=== PATIENT | male | born 1950 | race Caucasian/White ===

== ENCOUNTER 2018-09-21 05:40 | Inpatient (IN) ==
[2018-09-06 10:27] LABS: Basophils % 0.5 % (0.0-0.8); Eosinophils # 0.1 10*3/uL (0.0-0.87); Eosinophils % 1.4 % (0.00-10.9); Hematocrit 47.4 VOL% (42.0-52.0); Hemoglobin 15.8 GM/DL (14.0-18.0); Immature Granulocytes % 0.6 %; Immature Granulocytes Absolute 0.05 #; Lymphocytes # 1.7 10*3/uL (1.4-4.0); Lymphocytes % 21.1 % (21.2-54.2); Mean Corpuscular HGB Conc 33.3 GM/DL (32-36); Mean Corpuscular Hemoglobin 32 PG (27-34); Mean Platelet Volume 9.3 FL (9.6-12.0); Monocytes % 12.7 % (1.7-12.7); Neutrophils # 5.2 10*3/uL (1.4-7.4); Neutrophils % 63.7 % (38.7-73.9); Platelet Count 230 T/CUMM (130-400); Red Blood Count 4.94 MC/CUMM (3.8-5.5); Red Cell Distribution Width 13.2 % (9.3-17.3); White Blood Count 8.1 T/CUMM (4-12)
[2018-09-06 10:35] LABS: Apearance,Urine CLEAR (Clear); Bilirubin,Urine Negative (Negative); Blood, Urine Negative (Negative); Glucose,Urine (UA) Negative (Negative); Ketones,Urine Negative (Negative); Mucus,Urine Occasional /LPF (Occasional); Nitrite,Urine Negative (Negative); Protein,Urine Negative; RBC,Urine <1 /HPF (0-4); Urine Color Yellow (Yellow); Urine Specific Gravity 1.006 (1.001-1.035); Urine Urobilinogen < 2.0 EU/DL (0.2-1.0); WBC,Urine 2 /HPF (0-6)
[2018-09-06 10:44] LABS: PT Patient Result 10.5 SECS; Partial Thromboplastin Time 25.4 SECS (0-40)
[2018-09-06 10:47] LABS: Albumin 4.1 G/DL (3.4-5.0); Bilirubin,Total 0.9 MG/DL (0.2-1.0); Calcium 8.9 MG/DL (8.5-10.1); Osmolality,Calculated 278.4 MOS/KG (273-304); Potassium 4.4 MMOL/L (3.5-5.1); Total Protein 7.5 G/DL (6.4-8.3)
[2018-09-21] MEDS ORDERED: ceFAZolin 1,000 MG in SYRINGE 1 EACH IV ONE (06:00)
[2018-09-21] MEDS ORDERED: VANCOMYCIN INJ 1,000 MG in SODIUM CHLORIDE 0.9% 250 ML IV ONE ×2 (06:00→18:00)
[2018-09-21] MEDS ORDERED: BACITRACIN OINT 0.9 GM PACK TOP ONE (06:50)
[2018-09-21] MEDS ORDERED: ROPIVACAINE 0.5% 30 ML VIAL ONE (07:24)
[2018-09-21] MEDS ORDERED: ACETAMINOPHEN 1,000 MG/100 ML VIAL IV ONE (07:26)
[2018-09-21] MEDS ORDERED: BUPIVACAINE SPINAL 0.75% 2 ML AMP SPINAL ONE (07:26)
[2018-09-21] MEDS ORDERED: ceFAZolin 1,000 MG VIAL ONE (07:55)
[2018-09-21] MEDS ORDERED: VANCOMYCIN 1,000 MG VIAL ONE (07:55)
[2018-09-21] MEDS ORDERED: LACTATED RINGERS 1,000 ML IV SCH (08:00)
[2018-09-21] MEDS ORDERED: TRANEXAMIC ACID 1,000 MG/10 ML VIAL ONE (08:47)
[2018-09-21] MEDS ORDERED: LORATADINE 10 MG TABLET PO PRN (09:42)
[2018-09-21] MEDS ORDERED: ONDANSETRON 4 MG/2 ML VIAL IV PRN (09:43)
[2018-09-21] MEDS ORDERED: diphenhydrAMINE CAP 25 MG CAPSULE PO PRN (09:43)
[2018-09-21] MEDS ORDERED: MORPHINE 4 MG/1 ML VIAL IV PRN ×2 (09:43)
[2018-09-21] MEDS ORDERED: MAGNESIUM HYDROXIDE SUSP 30 ML UDCUP PO PRN (09:43)
[2018-09-21] MEDS ORDERED: PROPOFOL 200 MG/20 ML VIAL IV ONE (10:07)
[2018-09-21] MEDS ORDERED: fentaNYL 100 MCG/2 ML VIAL ONE (10:08)
[2018-09-21] MEDS ORDERED: SODIUM CHLORIDE 0.9% 100 ML IV ONE (10:08)
[2018-09-21] MEDS ORDERED: MIDAZOLAM 2 MG/2 ML VIAL ONE (10:08)
[2018-09-21] MEDS ORDERED: PROPOFOL 500 MG/50 ML BOTTLE IV ONE (10:08)
[2018-09-21] MEDS ORDERED: LACTATED RINGERS 1,000 ML IV ONE (10:08)
[2018-09-21] MEDS: LACTATED RINGERS 1,000 ML IV SCH ×2 (11:00→18:00)
[2018-09-21] MEDS: KETOROLAC 30 MG/1 ML VIAL IV SCH ×3 (11:53→22:14)
[2018-09-21] MEDS: ceFAZolin 2,000 MG in PREMIX 1 EACH IV SCH ×2 (14:57→22:14)
[2018-09-21] MEDS: ACETAMINOPHEN 500 MG TABLET PO SCH ×2 (14:58→21:11)
[2018-09-21] MEDS: DOCUSATE SODIUM 100 MG CAPSULE PO SCH (21:12)
[2018-09-21] MEDS: ZALEPLON 5 MG CAPSULE PO PRN (21:12)
[2018-09-22] MEDS: ACETAMINOPHEN 500 MG TABLET PO SCH ×2 (01:57→08:52)
[2018-09-22] MEDS: FONDAPARINUX 2.5 MG/0.5 ML SYRINGE SUBCUT SCH (04:18)
[2018-09-22] MEDS: KETOROLAC 30 MG/1 ML VIAL IV SCH (04:19)
[2018-09-22] MEDS: oxyCODONE IR 5 MG TABLET PO PRN ×3 (04:24→19:46)
[2018-09-22 05:26] LABS: Basophils % 0.4 % (0.0-0.8); Eosinophils # 0.1 10*3/uL (0.0-0.87); Eosinophils % 1.3 % (0.00-10.9); Hematocrit 36.2 VOL% (42.0-52.0); Hemoglobin 12.2 GM/DL (14.0-18.0); Immature Granulocytes % 0.5 %; Immature Granulocytes Absolute 0.04 #; Lymphocytes # 1.1 10*3/uL (1.4-4.0); Lymphocytes % 13.8 % (21.2-54.2); Mean Corpuscular HGB Conc 33.7 GM/DL (32-36); Mean Corpuscular Hemoglobin 32 PG (27-34); Mean Platelet Volume 10.5 FL (9.6-12.0); Monocytes # 1.1 10*3/uL (0.11-0.8); Monocytes % 13.4 % (1.7-12.7); Neutrophils # 5.8 10*3/uL (1.4-7.4); Neutrophils % 70.6 % (38.7-73.9); Platelet Count 160 T/CUMM (130-400); Red Blood Count 3.77 MC/CUMM (3.8-5.5); Red Cell Distribution Width 13.6 % (9.3-17.3); White Blood Count 8.3 T/CUMM (4-12)
[2018-09-22 05:32] LABS: Calcium 7.7 MG/DL (8.5-10.1); Osmolality,Calculated 281.1 MOS/KG (273-304); Potassium 3.6 MMOL/L (3.5-5.1)
[2018-09-22] MEDS: LACTATED RINGERS 1,000 ML IV SCH (05:58)
[2018-09-22] MEDS: DOCUSATE SODIUM 100 MG CAPSULE PO SCH ×2 (08:52→20:38)
[2018-09-22] MEDS: MULTIVITAMIN (OCUVITE) TABLET PO SCH (08:52)
[2018-09-22] MEDS ORDERED: ACETAMINOPHEN 325 MG TABLET PO PRN (09:44)
[2018-09-22] MEDS: CELECOXIB 200 MG CAPSULE PO SCH (16:14)
[2018-09-22] MEDS: ZALEPLON 5 MG CAPSULE PO PRN (19:46)
[2018-09-23] MEDS: FONDAPARINUX 2.5 MG/0.5 ML SYRINGE SUBCUT SCH (04:10)
[2018-09-23] MEDS: oxyCODONE IR 5 MG TABLET PO PRN ×3 (04:14→08:39)
[2018-09-23 08:15] LABS: Basophils % 0.3 % (0.0-0.8); Eosinophils # 0.1 10*3/uL (0.0-0.87); Eosinophils % 1.5 % (0.00-10.9); Hematocrit 37.7 VOL% (42.0-52.0); Hemoglobin 12.1 GM/DL (14.0-18.0); Immature Granulocytes % 0.5 %; Immature Granulocytes Absolute 0.05 #; Lymphocytes # 1.7 10*3/uL (1.4-4.0); Lymphocytes % 18.1 % (21.2-54.2); Mean Corpuscular HGB Conc 32.1 GM/DL (32-36); Mean Corpuscular Hemoglobin 31 PG (27-34); Mean Corpuscular Volume 96.7 FL (87-102); Mean Platelet Volume 10.6 FL (9.6-12.0); Monocytes # 1.5 10*3/uL (0.11-0.8); Neutrophils % 63.6 % (38.7-73.9); Platelet Count 191 T/CUMM (130-400); Red Cell Distribution Width 13.6 % (9.3-17.3); White Blood Count 9.4 T/CUMM (4-12)
[2018-09-23 08:35] LABS: Band Neutrophils 4 % (0-10); Eosinophils 4 % (0-10); Lymphocytes 21 % (20-55); Segmented Neutrophils 58 % (50-85); Total Cells Counted 100
[2018-09-23 08:36] LABS: Platelet Estimate Normal
[2018-09-23] MEDS: MULTIVITAMIN (OCUVITE) TABLET PO SCH (08:39)
[2018-09-23] MEDS: DOCUSATE SODIUM 100 MG CAPSULE PO SCH (08:39)
[2018-09-23] MEDS: CELECOXIB 200 MG CAPSULE PO SCH (08:39)
[2018-09-23 11:30] VITALS: BP 135/82
== END 2018-09-23 13:55 | disposition home health service (06) | DRG 470 ==
LOC: N.SDSINP 05:40 → N.OR 05:40 → N.3E 08:41
PROVIDERS: ADMIT Orthopaedic Surgery; ATTEND Orthopaedic Surgery

== ENCOUNTER 2022-12-01 05:29 | Observation (INO) ==
[2022-11-25 12:04] LABS: Basophils % 0.7 % (0.0-0.8); Eosinophils # 0.1 10*3/uL (0.0-0.87); Eosinophils % 1.1 % (0.00-10.9); Hematocrit 45.5 VOL% (42.0-52.0); Hemoglobin 15.2 GM/DL (14.0-18.0); Immature Granulocytes % 0.5 %; Immature Granulocytes Absolute 0.03 #; Lymphocytes # 1.3 10*3/uL (1.4-4.0); Lymphocytes % 21.8 % (21.2-54.2); Mean Corpuscular HGB Conc 33.4 GM/DL (32-36); Mean Corpuscular Volume 93.8 FL (87-102); Mean Platelet Volume 10.1 FL (9.6-12.0); Monocytes # 0.8 10*3/uL (0.11-0.8); Monocytes % 13.3 % (1.7-12.7); Neutrophils % 62.6 % (38.7-73.9); Platelet Count 239 T/CUMM (130-400); Red Blood Count 4.85 MC/CUMM (3.8-5.5); Red Cell Distribution Width 12.8 % (9.3-17.3); White Blood Count 6.1 T/CUMM (4-12)
[2022-11-25 12:14] LABS: RBC,Urine <1 /HPF (0-4)
[2022-11-25 12:15] LABS: Urine Appearance Clear (Clear); Urine Color Yellow (Yellow)
[2022-11-25 12:16] LABS: Bilirubin,Urine Negative (Negative); Blood, Urine Trace mg/dL (Negative); Glucose,Urine (UA) Negative (Negative); INR 1.1; Ketones,Urine Negative (Negative); Nitrite,Urine Negative (Negative); PT Patient Result 11.9 SECS (10.1-12.1); Protein,Urine Negative (Negative); Urine Specific Gravity 1.015 (1.001-1.035); Urine Urobilinogen 0.2 eU/dL (<2.0)
[2022-11-25 12:24] LABS: Albumin 3.8 G/DL (3.4-5.0); Bilirubin,Total 0.7 MG/DL (0.20-1.00); Calcium 9.1 MG/DL (8.5-10.1); Osmolality,Calculated 278.5 MOS/KG (273-304); Potassium 4.8 MMOL/L (3.5-5.1); Total Protein 7.1 G/DL (6.4-8.2)
[2022-12-01] MEDS ORDERED: ceFAZolin 2,000 MG/50 ML DUPLEX IV ONE (05:42)
[2022-12-01] MEDS ORDERED: VANCOMYCIN 1,000 MG VIAL ONE (05:42)
[2022-12-01] MEDS ORDERED: MIDAZOLAM 2 MG/2 ML VIAL ONE ×2 (06:17→08:03)
[2022-12-01] MEDS ORDERED: propofoL 200 MG/20 ML VIAL IV ONE ×2 (06:17→09:45)
[2022-12-01] MEDS ORDERED: fentaNYL 100 MCG/2 ML VIAL ONE (06:17)
[2022-12-01] MEDS ORDERED: ACETAMINOPHEN 500 MG TABLET PO ONE (06:26)
[2022-12-01] MEDS ORDERED: FAMOTIDINE 20 MG TABLET PO ONE (06:26)
[2022-12-01] MEDS ORDERED: GABAPENTIN 400 MG CAPSULE PO ONE (06:26)
[2022-12-01] MEDS ORDERED: LACTATED RINGERS 1,000 ML IV SCH ×2 (06:30→08:00)
[2022-12-01] MEDS ORDERED: LIDOCAINE 1% 5 ML VIAL ONE (06:38)
[2022-12-01] MEDS ORDERED: DEXAMETHASONE 4 MG/1 ML VIAL ONE (06:38)
[2022-12-01] MEDS ORDERED: BUPIVACAINE MPF 0.25% 30 ML VIAL ONE (06:38)
[2022-12-01] MEDS ORDERED: buprenorphine HCL 0.3 MG/ML VIAL ONE (07:04)
[2022-12-01] MEDS ORDERED: ePHEDrine 50 MG/ML VIAL ONE (07:17)
[2022-12-01] MEDS ORDERED: LORATADINE 10 MG TABLET PO PRN (07:37)
[2022-12-01] MEDS ORDERED: MAGNESIUM HYDROXIDE SUSP 30 ML UDCUP PO PRN ×2 (07:37→20:07)
[2022-12-01] MEDS ORDERED: ONDANSETRON 4 MG/2 ML VIAL IV PRN ×2 (07:37→20:07)
[2022-12-01] MEDS ORDERED: ZALEPLON 5 MG CAPSULE PO PRN ×2 (07:37→20:07)
[2022-12-01] MEDS ORDERED: MORPHINE 2 MG/1 ML SYRINGE IV PRN ×4 (07:37→20:07)
[2022-12-01] MEDS ORDERED: diphenhydrAMINE CAP 25 MG CAPSULE PO PRN (07:37)
[2022-12-01] MEDS ORDERED: FLUTICASONE 50 MCG NASAL SPRAY 16 GM BOTTLE BOTH NARES PRN ×2 (07:37→20:05)
[2022-12-01] MEDS ORDERED: SODIUM CHLORIDE 0.9% 250 ML IV ONE ×2 (07:49→07:53)
[2022-12-01] MEDS ORDERED: TRANEXAMIC ACID 1,000 MG/10 ML VIAL ONE (07:49)
[2022-12-01] MEDS ORDERED: PHENYLEPHRINE 10 MG/1 ML VIAL IV ONE (07:53)
[2022-12-01] MEDS ORDERED: GLYCOPYRROLATE 0.4 MG/2 ML VIAL ONE (08:04)
[2022-12-01] MEDS ORDERED: LACTATED RINGERS 1,000 ML IV ONE (08:05)
[2022-12-01] MEDS ORDERED: BACITRACIN OINT 0.9 GM PACK TOP ONE (08:25)
[2022-12-01 09:09] LABS: Bacteria,Urine Occasional /HPF (Few); Mucus,Urine Occasional /LPF (Occasional); RBC,Urine 115 /HPF (0-4); Squamous Epithelial Cell,Urine Occasional /HPF (0-10)
[2022-12-01 09:10] LABS: Bilirubin,Urine Negative (Negative); Blood, Urine Large mg/dL (Negative); Glucose,Urine (UA) Negative (Negative); Ketones,Urine Negative (Negative); Nitrite,Urine Negative (Negative); Protein,Urine Negative (Negative); Urine Appearance Clear (Clear); Urine Color Yellow (Yellow); Urine Specific Gravity 1.025 (1.001-1.035)
[2022-12-01 09:11] LABS: Urine Urobilinogen 0.2 eU/dL (<2.0)
[2022-12-01] MEDS: KETOROLAC 15 MG/1 ML VIAL IV SCH ×4 (10:32→21:15)
[2022-12-01] MEDS ORDERED: ceFAZolin 2,000 MG/50 ML DUPLEX IV SCH ×2 (14:00→22:00)
[2022-12-01] MEDS ORDERED: PANTOPRAZOLE 40 MG TABLET PO SCH (21:00)
[2022-12-01] MEDS ORDERED: DOCUSATE SODIUM 100 MG CAPSULE PO SCH (21:00)
[2022-12-01] MEDS ORDERED: METOPROLOL SUCCINATE XL 25 MG TABLET PO SCH (21:00)
[2022-12-01] MEDS: DOCUSATE SODIUM 100 MG CAPSULE PO SCH (21:15)
[2022-12-01] MEDS: PANTOPRAZOLE 40 MG TABLET PO SCH (21:15)
[2022-12-02] MEDS: KETOROLAC 15 MG/1 ML VIAL IV SCH ×2 (02:56→08:12)
[2022-12-02 05:52] LABS: Basophils % 0.1 % (0.0-0.8); Eosinophils % 0.1 % (0.00-10.9); Hemoglobin 12.2 GM/DL (14.0-18.0); Immature Granulocytes % 0.4 %; Immature Granulocytes Absolute 0.04 #; Lymphocytes % 9.7 % (21.2-54.2); Mean Corpuscular Volume 94.9 FL (87-102); Mean Platelet Volume 9.9 FL (9.6-12.0); Monocytes # 1.6 10*3/uL (0.11-0.8); Monocytes % 15.9 % (1.7-12.7); Neutrophils % 73.8 % (38.7-73.9); Platelet Count 191 T/CUMM (130-400); Red Cell Distribution Width 13.2 % (9.3-17.3); White Blood Count 9.99 T/CUMM (4-12)
[2022-12-02 06:02] LABS: Calcium 8.4 MG/DL (8.5-10.1); Osmolality,Calculated 277.5 MOS/KG (273-304); Potassium 3.7 MMOL/L (3.5-5.1)
[2022-12-02 06:17] LABS: Lymphocytes 9 % (20-55); Platelet Estimate Adequate; Total Cells Counted 100
[2022-12-02] MEDS: PANTOPRAZOLE 40 MG TABLET PO SCH (08:12)
[2022-12-02] MEDS: DOCUSATE SODIUM 100 MG CAPSULE PO SCH (08:12)
[2022-12-02] MEDS ORDERED: APIXABAN 2.5 MG TABLET PO SCH (09:00)
[2022-12-02 11:00] VITALS: BP 137/79
== END 2022-12-02 13:51 | disposition home health service (06) ==
LOC: N.SDSINP → N.3E 05:29 → INTOOBSV 05:29 → N.SDSINP 05:29 → N.3E 09:42 → EDSTATUS 15:14 → N.SDS 15:15 → N.SDSINP 15:16
PROVIDERS: ADMIT Orthopaedic Surgery; ATTEND Orthopaedic Surgery